=== PATIENT | female | born 1950 | race Caucasian/White ===

== ENCOUNTER 2023-09-24 09:43 | Outpatient (RCR) | payer MEDICARE, BC, SELFPAY | END 2023-09-24 10:45 | disposition home or self-care (01) | PROVIDERS: PCP Orthopaedic Surgery; Visit Provider Orthopaedic Surgery | DX: M16.12 Unilateral primary osteoarthritis, left hip (principal); Z96.642 Presence of left artificial hip joint; M25.552 Pain in left hip; Z74.09 Other reduced mobility; R26.9 Unspecified abnormalities of gait and mobility; R29.898 Other symptoms and signs involving the musculoskeletal system; Z51.89 Encounter for other specified aftercare | CPT/HCPCS: 97161; 97535 ==

== ENCOUNTER 2023-10-01 06:02 | Day surgery (SDC) | payer MEDICARE, BC, SELFPAY ==
[2023-10-01] VITALS (22 sets, daily range): BP systolic 107–145; BP diastolic 42–119; PULSE 65–94; RESP 14–18; TEMP 35.9–37; O2SAT 89–99; BMI 28.6
[2023-10-01] MEDS: ACETAMINOPHEN 500 MG TABLET 1000 MG PO ×3 (06:20→22:07)
[2023-10-01] MEDS: OXYCODONE (CR) 10 MG TAB.ER.12H PO (06:20)
[2023-10-01] MEDS: SODIUM CHLORIDE 0.9 % (FLUSH) 10 ML SYRINGE IVF (06:25)
[2023-10-01] MEDS: LACTATED RINGERS 1000 ML 1,000 ML 100 ML IV ×2 (06:25→08:52)
[2023-10-01] MEDS: MIDAZOLAM HCL 1 MG/ML inj IVP (07:05)
[2023-10-01] MEDS: fentaNYL 100 MCG/2 ML inj IVP (07:05)
--- NOTE | 2023-10-01 07:15 | XR_ITS ---
Patient: CHRIS KRISHNAMURTHY Facility:?[facility] Patient ID:?[id number] Site Patient ID:?[id number]. Site :?[id number] Study:?XRay-Hip Left TOTAL HIP, AA-10/01/2023 9:09:10 AM Ordering Physician:MAN Final Report: Indication: Hip replacement surgery Technique: AP hip fluoroscopic images. Fluoroscopy time 74.8 seconds. Findings/Impression: Hardware from a left total hip arthroplasty is in satisfactory position. Dictated by Jeffry Elkins MD @ 10/01/2023 12:38:48 PM Signed by:?Jeffry Elkins MD @10/01/2023 12:38:48 PM (Electronic Signature)
--- NOTE | 2023-10-01 07:19 | SUR.PREOP ---
TIME?OUT:?07 PT/jamshid reza RN/antonio ott MDA?VERIFICATION?OF?SURGICAL?SITE,?PROCEDURE,?AND?CONSENT OBTAINED?PRIOR?TO?INVASIVE?PROCEDURE.
[2023-10-01] MEDS: TRANEXAMIC ACID 100 MG/ML INJ 1000 MG IV (07:39)
[2023-10-01] MEDS: CEFAZOLIN 2 GM INJ IVP (07:39)
--- NOTE | 2023-10-01 07:50 | P.NB_ITS ---
Nerve Block Nerve Block Time Seen by Provider: 07:08 Date Seen: 10/01/23 Type of block requested by surgeon for post-operative analgesia: LYNDSAY/LFCN Side: left Time out performed: Yes Verification of patient name: Yes Verification of date of : Yes Site marking: site marked Name of person performing procedure: Clark Continuous monitoring Was continuous monitoring of O2 sat, B/P, printing equipment mechanic, recorded every 15 minutes?: Yes Procedure Checklist: sterile prep, needles and gloves Ultrasound guided. Images saved: Yes Medications given in 5ml increments after negative aspiration: Ropivicaine %: 0.5 mL: 30 Needle gauge: 20 Decadron (mg): 10 Precedex (mcg): 25 Patient tolerated procedure well: Yes Additional comments: Needle noted below psoas tendon needle noted adjacent to LFCN Block Charges Block Charge (with Pro Fee): Other Periph Nerve Block Use of Ultrasound Machine for Block: Yes- US Guidance/pain block
--- NOTE | 2023-10-01 07:50 | W.ANESCHARGE ---
Anesthesia Charges Start Date/Time Anesthesia Start Date: 10/01/23 Anesthesia Start Time: 07:15 Stop Date/Time Anesthesia Stop Date: 10/01/23 Anesthesia Stop Time: 09:54 Summary Extremes of Age - Over 70 or under 1: MDA
--- NOTE | 2023-10-01 08:55 | XR_ITS ---
Patient: CHRIS KRISHNAMURTHY Facility:?[facility] Patient ID:?[id number] Site Patient ID:?[id number]. Site :?[id number] Study:?XRay-Hip POST OP-10/01/2023 10:32:20 AM Ordering Physician:MAN Final Report: Indication: POST OP LEFT HIP Technique: AP hip centered pelvis and lateral view left hip Findings/Impression: Hardware from a left total hip arthroplasty is in satisfactory position. Bone alignment is normal. No sign of acute fracture. Postop changes are within normal limits. Dictated by Jeffry Elkins MD @ 10/01/2023 12:39:42 PM Signed by:?Jeffry Elkins MD @10/01/2023 12:39:42 PM (Electronic Signature)
--- NOTE | 2023-10-01 08:56 | P.ORPRC_ITS ---
Procedure Note Date of procedure: 10/01/23 Procedure: PREOPERATIVE DIAGNOSIS: Left hip osteoarthritis POSTOPERATIVE DIAGNOSIS: Left hip osteoarthritis NAME OF OPERATION: Left total hip arthroplasty SURGEON: Paco Abarca MD TECHNICAL SUPERVISOR: Magno Poon PA-C, TORY Rossi IMPLANTS: 1. [employer] [place] # 48 sector ingrowth cup 2. 32 x 48 neutral polyethylene 3. Actis #4 standard collared ingrowth stem 4. 32 +1 ceramic femoral head ANESTHESIA: General ESTIMATED BLOOD LOSS: 350 cc COMPLICATIONS: None SPECIMENS: None DRAINS: None PREOPERATIVE ANTIBIOTICS: Ancef 2 grams INDICATIONS: The patient is a 73-year-old with a longstanding history of severe, unrelenting left hip pain secondary to end-stage left hip osteoarthritis. Despite appropriate nonoperative management, including activity modification, use of an assist device, anti-inflammatories, [id number] pain medication, physical therapy and injections, they continue to have pain and disability. Operative intervention was offered. The risks, benefits and expected outcomes were discussed in detail. These included but were not limited to: Infection, bleeding, injury to blood vessel or nerve, venous thromboembolism. All questions were answered to their satisfaction. Use of an agency sales management assistant was necessary throughout the case for patient positioning and safety, soft tissue retraction and closure. PROCEDURE: The patient was placed supine on the [place] table. General anesthesia was administered. The agency sales management assistant made sure the patient was properly positioned. The left hip was prepped and draped in the usual sterile fashion. The image intensifier was brought in for a perfect AP pelvis and a perfect double tear drop AP view of each hip which were used for intraoperative templating with our fluoroscopic guide. An oblique incision was made 3 cm distal and 3 cm lateral to the anterior superior iliac spine. The agency sales management assistant retracted the soft tissues to protect them. Subcutaneous dissection was taken with electrocautery to the superficial fascia. The fascia was divided in line with the incision. Blunt dissection was carried medially to the tensor fascia to and sartorius interval. Deep dissection was carried with electrocautery. The circumflex vessels were cauterized and divided. The capsule was exposed and then divided in a T- fashion, tagged with #1 Ethibond sutures. Retractors were placed in the joint, held by the agency sales management assistant. The corkscrew was placed in the femoral head. The neck cut was made in the subcapital region. We made a second neck cut more distal. The napkin ring of bone was removed. The femoral head was removed intact. Acetabular retractors were placed, held by the agency sales management assistant. The labrum was sharply debrided. The capsule was released. The 43 mm reamer was used to the true medial wall. We then enlarged in 2 mm increments using the image in tensifier for our reamer placement. We impacted the cup which had excellent purchase. We placed the polyethylene. Attention was then turned to the proximal femur. The limb was placed in 140 degrees of external rotation, maximum extension and adduction. A significant amount of time was spent releasing the capsule to allow us to deliver the femur into the wound and complete the femoral side safely. Retractors were held by the agency sales management assistant throughout the femoral preparation. The stocking and box shop supervisor and canal finder were used. Broaches were used to a stable size. The calcar reamer was used. Trial components were placed. The hip was reduced and was found to be stable with appropriate soft tissue tension. Length and offset had been nicely restored using the image intensifier and our fluoroscopic guide. Trial components were removed. The stem was impacted. We placed the femoral head. Again, the hip was reduced and was found to be stable with appropriate soft tissue tension. Length and offset had been nicely restored. The agency sales management assistant did a three minute dilute Betadine solution soak. The agency sales management assistant irrigated the wound with 3 liters of normal saline via pulse lavage. The agency sales management assistant repaired the anterior capsule with a #1 Vicryl and our previously placed Ethibond sutures. The agency sales management assistant closed the fascia over the tensor fascia to with a #1 PDO Stratafix, subcutaneous tissues with 2-0 Vicryl, skin with a running 3-0 Stratafix and glue. A dry dressing was applied by the agency sales management assistant. Sponge and needle counts were correct x 2. The patient tolerated the procedure well; there were no apparent complications. They were awakened and extubated in the operating room, sent to the Post-Anesthesia Care Unit in satisfactory condition. PLAN: 1. The patient will be mobilized with physical therapy, weight-bearing as tolerates 2. Xarelto x 5 days then aspirin x 30 days will be used for DVT prophylaxis 3. The patient will be discharged once medically appropriate
--- NOTE | 2023-10-01 09:56 | P.ANES_ITS ---
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
[2023-10-01] MEDS: CEFAZOLIN 2 GM in 0.9 % SODIUM CHLORIDE Mini-bag 100 ML IVPB ×2 (14:06→21:13)
--- NOTE | 2023-10-01 17:09 | P.IMCN_ITS ---
Date of Consult Patient: Other Consult date: 10/01/23 Requesting Physician: Orthopedics Primary Care Provider: Diane Jackson MD Consult Narrative Reason for consult: Anxiety Narrative: Ivonne Dupree is a 73 year old female who is on Paxil for anxiety and underwent elective left total hip arthroplasty today by Dr. Abarca for severe osteoarthritis. She is doing well postoperatively and has no pain at this time. She is eating a little bit of dinner and feels good. Review of Systems Status of ROS: Reports: 6 or more systems reviewed and unremarkable except as noted in History and below [facility] Medical History (Updated 10/01/23 @ 17:40 by Jena Grady MD) Asymptomatic varicose veins ?I83.90 - Asymptomatic varicose veins of unspecified lower extremity (ICD-10) Mucous polyp of cervix ?N84.1 - Polyp of cervix uteri (ICD-10) B12 deficiency ?E53.8 - Deficiency of other specified B group vitamins (ICD-10) Insomnia ?G47.00 - Insomnia, unspecified (ICD-10) Sciatica ?M54.30 - Sciatica, unspecified side (ICD-10) Anxiety ?F41.9 - Anxiety disorder, unspecified (ICD-10) Surgical History (Updated 10/01/23 @ 17:39 by Jena Grady MD) S/P anal fissurectomy (~1974) ?Z98.890 - Other specified postprocedural states (ICD-10) ?Z87.19 - Personal history of other diseases of the digestive system (ICD-10) H/O wisdom tooth extraction ?K08.409 - Partial loss of teeth, unspecified cause, unspecified class (ICD- 10) Hx of colonoscopy ?Z98.890 - Other specified postprocedural states (ICD-10) S/P total left hip arthroplasty (10/01/23) ?Z96.642 - Presence of left artificial hip joint (ICD-10) History of open reduction and internal fixation (ORIF) procedure (~2020) ?Z98.890 - Other specified postprocedural states (ICD-10) History of cataract extraction ?Z98.49 - Cataract extraction status, unspecified eye (ICD-10) History of total right knee replacement (~2017) ?Z96.651 - Presence of right artificial knee joint (ICD-10) H/O dilation and curettage (1977) ?Z98.890 - Other specified postprocedural states (ICD-10) Status post total left knee replacement (02/06/16) ?Z96.652 - Presence of left artificial knee joint (ICD-10) Family History (Updated 10/01/23 @ 17:01 by Jena Grady MD) Father Skin cancer Sister Diabetes COPD (chronic obstructive pulmonary disease) High blood pressure Son FH: testicular cancer, Onset Age: 40 Family/Other Type I diabetes mellitus Social History (Updated 10/01/23 @ 17:18 by Jena Grady MD) Narrative: , lives independently with , never smoker, 1 glass red wine nightly, denies recreational drugs. Smoking Status: Never smoker Do you use any of these nicotine containing products: None Second hand tobacco smoke exposure: No How often do you have a drink containing alcohol: 2-3 times a week How often do you have six or more drinks on one occasion: Never AUDIT-C Alcohol total score: 3 Non-prescribed substance use: denies use Caffeine: Yes Meds Home Medications and Allergies Home Medications Medication Instructions Recorded Confirmed Type calcium 600 mg-D3 20 mcg-magnesium 2 tab PO DAILY 05/20/23 10/01/23 History 40 oc-xitpxf-dpij-zinc chew tablet carboxymethylcellulose sodium 0.5 1 drp ophthalmic (eye) BID 05/20/23 10/01/23 History % eye drops (Refresh Tears) paroxetine HCl 30 mg tablet 30 mg PO DAILY 05/20/23 10/01/23 History fexofenadine-pseudoephedrine ER 1 tab PO DAILY PRN 09/30/23 10/01/23 History 180 mg-240 mg tablet,ext.release 24 hr (Stephanie-D 24 Hour) fluticasone propionate 50 2 spray intranasal DAILY 09/30/23 10/01/23 History mcg/actuation nasal spray,suspension Allergies Allergy/AdvReac Type Severity Reaction Status Date / Time celecoxib [From Celebrex] Allergy Nausea Verified 10/01/23 06:32 lisinopril Allergy Cough Verified 10/01/23 06:32 propoxyphene [From Darvon] AdvReac tachycardia Verified 10/01/23 06:32 tramadol AdvReac tachycardia, Verified 03/05/24 06:32 dizziness Exam Narrative: Exam Narrative: General: No acute distress. Awake alert oriented x3. HEENT: Normocephalic atraumatic, pupils equally round and reactive to light and accommodation. Oropharynx clear. Mucous membranes are moist. No cervical lymphadenopathy, thyromegaly or carotid bruits. No JVD. Cardiovascular: Regular rate and rhythm. No murmurs, gallops, or rubs. Chest: No increased work of breathing. Clear to auscultation bilaterally. No crackles or wheezes. Abdomen: Bowel sounds present. Soft, nondistended, nontender. No hepatosplenomegaly or masses. Extremities: Left hip bandage is clean, dry, and intact. No edema, no cyanosis or clubbing. Skin: No jaundice, no pallor. Const: Vital Signs, click to edit/add: Vital Signs - 24 hr 10/01/23 06:32 10/01/23 07:04 10/01/23 09:50 Temperature 97.8 F 97.4 F L Pulse Rate 69 65 77 Pulse Rate [Bilate ral Pulse Oximeter ] Respiratory Rate 16 16 14 Blood Pressure 142/77 H 145/77 H 140/72 H Pulse Oximetry 98 97 89 Oxygen Delivery Me thod Room Air Nasal Cannula OxyMask Oxygen Flow Rate 2 10 Fraction of Inspir ed Oxygen 100 10/01/23 09:55 10/01/23 10:00 10/01/23 10:05 Temperature Pulse Rate 77 79 83 Pulse Rate [Bilate ral Pulse Oximeter ] Respiratory Rate 14 16 16 Blood Pressure 127/56 L 123/87 138/94 H Pulse Oximetry 93 99 97 Oxygen Delivery Me thod OxyMask OxyMask OxyMask Oxygen Flow Rate 10 10 6 Fraction of Inspir ed Oxygen 100 100 100 10/01/23 10:10 10/01/23 10:15 10/01/23 10:20 Temperature Pulse Rate 78 72 76 Pulse Rate [Bilate ral Pulse Oximeter ] Respiratory Rate 16 16 16 Blood Pressure 135/119 H 142/72 H 128/65 Pulse Oximetry 96 97 95 Oxygen Delivery Me thod Room Air Room Air Room Air Oxygen Flow Rate Fraction of Inspir ed Oxygen 10/01/23 10:25 10/01/23 10:35 10/01/23 10:45 Temperature 98.2 F 96.6 F L Pulse Rate 78 79 80 Pulse Rate [Bilate ral Pulse Oximeter ] Respiratory Rate 16 16 16 Blood Pressure 143/63 H 128/65 130/76 Pulse Oximetry 94 92 92 Oxygen Delivery Me thod Room Air Room Air Room Air Oxygen Flow Rate Fraction of Inspir ed Oxygen 10/01/23 11:00 10/01/23 11:15 10/01/23 11:30 Temperature 97.6 F Pulse Rate 85 83 79 Pulse Rate [Bilate ral Pulse Oximeter ] Respiratory Rate 16 16 16 Blood Pressure 129/66 129/70 120/68 Pulse Oximetry 93 96 95 Oxygen Delivery Me thod Room Air Room Air Room Air Oxygen Flow Rate Fraction of Inspir ed Oxygen 10/01/23 12:00 10/01/23 12:30 10/01/23 13:00 Temperature 97.7 F Pulse Rate 82 94 87 Pulse Rate [Bilate ral Pulse Oximeter ] Respiratory Rate 16 16 16 Blood Pressure 117/64 116/61 107/66 Pulse Oximetry 94 94 95 Oxygen Delivery Me thod Room Air Room Air Room Air Oxygen Flow Rate Fraction of Inspir ed Oxygen 10/01/23 14:00 10/01/23 15:00 10/01/23 16:00 Temperature 97.5 F L 97.6 F Pulse Rate 83 91 Pulse Rate [Bilate ral Pulse Oximeter ] 91 Respiratory Rate 18 16 16 Blood Pressure 136/67 125/63 Pulse Oximetry 96 93 Oxygen Delivery Me thod Room Air Room Air Oxygen Flow Rate Fraction of Inspir ed Oxygen Assessment and Plan Assessment and plan (1) S/P total left hip arthroplasty: Problem comment: - 10/01/2023, Dr. Abarca - routine postop cares - routine VTE prophylaxis with Giorgio's, SCDs, Xarelto for 5 days then transitioning to low-dose aspirin twice a day. Status: Acute (2) Osteoarthritis of left hip: Status: Chronic (3) Anxiety: Problem comment: Continue paroxetine Status: Chronic
[2023-10-01] MEDS: OXYCODONE 5 MG TABLET PO (21:13)
[2023-10-01] MEDS: CARBOXYMETHYLCELLULOSE (REFRESH PLUS) TEARS 1 DROP EYE-BOTH (21:14)
--- NOTE | 2023-10-01 22:48 | PC.NURSE ---
End of Shift: Patient pleasant and cooperative. Afebrile. Dressing to left hip C/D/I. CMS intact. Rating pain 2-4/10 and PRN Oxycodone given x1. Up to chair and bathroom with 1 assist, walker and gait belt. Tolerating regular diet with no nausea.
[2023-10-02 00:50] VITALS: BP 102/57; PULSE 78; RESP 16; TEMP 36.7; O2SAT 92
[2023-10-02] MEDS: ACETAMINOPHEN 500 MG TABLET 1000 MG PO ×2 (03:41→09:30)
[2023-10-02 03:50] VITALS: BP 107/60; PULSE 94; RESP 16; TEMP 37; O2SAT 90
[2023-10-02 06:36] LABS: Basophils Absolute Auto 0.01 K/uL (0.00-0.30); Basophils Percent Auto 0.1 % (0.0-3.0); Hematocrit 31.5 % (33.0-51.0); Immature Granulocytes Abs Auto 0.01 K/uL (0.00-0.30); Immature Granulocytes Pct Auto 0.1 %; Lymphocytes Percent Auto 8.8 % (20-44); Mean Corpuscular HGB Conc 32 gm/dL (32-36); Mean Corpuscular Hemoglobin 33 pg (26-34); Mean Corpuscular Volume 105 fL (80-100); Monocytes Percent Auto 10.7 % (0.0-11.0); Neutrophils Percent Auto 80.3 % (42.0-72.0); Platelet Count* 187 K/uL (140-440); RDW Coefficient of Variation % 13.2 % (11.5-15.5); Red Blood Count 2.99 m/uL (4.00-5.20); White Blood Count* 9.92 K/uL (4.50-11.00)
--- NOTE | 2023-10-02 06:36 | PC.NURSE ---
Pt alert and oriented x3.?Afebrile. Pt reports 3/10 pain in left hip, managed with ice pack and scheduled?medications. Pt denies SOB, chest pain, and N/V. Pt?s left hip dressing is CDI. Pt is up SBA to bathroom, voiding, and tolerating a regular diet. Pt slept throughout most of night.??
[2023-10-02 07:13] LABS: Potassium* 4.3 mmol/L (3.6-5.1); Sodium* 138 mmol/L (135-149)
[2023-10-02 07:16] LABS: Blood Urea Nitrogen* 27 mg/dL (7-30); Creatinine* 0.7 mg/dL (0.5-1.5); Est. Creatinine Clearance* 41.97; Estimated Glomerular Filt Rate 90 ml/min
[2023-10-02 07:26] LABS: Slide Review Reflex No
[2023-10-02 08:13] VITALS: BP 121/72; PULSE 86; RESP 16; TEMP 37.3; O2SAT 94
--- NOTE | 2023-10-02 08:29 | PM.ORPN ---
Subjective Subjective Time Seen by Provider: 07:40 Date Seen: 10/02/23 Principal diagnosis: Day 1 s/p left total hip arthroplasty Interval history: Ivonne is doing well and resting comfortably in bed. Reports slept very well. Strong appetite, just finished breakfast. Ivonne reports no left hip pain, but c/o left hip stiffness. Pain is well managed with Tylenol and icing this morning. Denies: fever, chills, chest pain, SOB, numbness/tingling distally. Denies bowel movement postoperatively, but admits to flatulence. Last BM Saturday. Patient is eager to be discharged late morning/early afternoon today. Ortho Exam Narrative Exam Narrative: Incision/Dressing: Dressing appears clean and dry. No drainage present. Mepilex intact. Left hip appears moderately swollen but supple with no obvious erythema, fluctuance or excessive warmth. Posterior left hip ecchymosis present. Warmth around the wound is appropriate. Ice is being utilized as needed. CMS: Intact distally with 2+ Dorsalis pedis and Posterior Tibial pulses. 5/5 motor strength dorsal and plantar flexion. Confirmed sensation distally. Intact straight leg raise. Calf: Bilateral calves are supple, with no swelling, pain, tenderness, erythema, discoloration or coolness to the touch. Constitutional: Patient is alert and oriented x3. Patient is in no acute distress and converses without labored breathing. Patient is able to make decisions and demonstrates good insight. Patient is pleasant and cooperative. Affect is full range and appropriate for the circumstances. Const Vital Signs, click to edit/add: Vital Signs - 24 hr 10/01/23 09:50 10/01/23 09:55 10/01/23 10:00 Temperature 97.4 F L Pulse Rate 77 77 79 Pulse Rate [Bilateral Pulse Oximeter] Pulse Rate [Right Pulse Oximeter] Respiratory Rate 14 14 16 Blood Pressure 140/72 H 127/56 L 123/87 Blood Pressure [Left Arm] Pulse Oximetry 89 93 99 Oxygen Delivery Method OxyMask OxyMask OxyMask Oxygen Flow Rate 10 10 10 Fraction of Inspired Oxygen 100 100 100 10/01/23 10:05 10/01/23 10:10 10/01/23 10:15 Temperature Pulse Rate 83 78 72 Pulse Rate [Bilateral Pulse Oximeter] Pulse Rate [Right Pulse Oximeter] Respiratory Rate 16 16 16 Blood Pressure 138/94 H 135/119 H 142/72 H Blood Pressure [Left Arm] Pulse Oximetry 97 96 97 Oxygen Delivery Method OxyMask Room Air Room Air Oxygen Flow Rate 6 Fraction of Inspired Oxygen 100 10/01/23 10:20 10/01/23 10:25 10/01/23 10:35 Temperature 98.2 F 96.6 F L Pulse Rate 76 78 79 Pulse Rate [Bilateral Pulse Oximeter] Pulse Rate [Right Pulse Oximeter] Respiratory Rate 16 16 16 Blood Pressure 128/65 143/63 H 128/65 Blood Pressure [Left Arm] Pulse Oximetry 95 94 92 Oxygen Delivery Method Room Air Room Air Room Air Oxygen Flow Rate Fraction of Inspired Oxygen 10/01/23 10:45 10/01/23 11:00 10/01/23 11:15 Temperature 97.6 F Pulse Rate 80 85 83 Pulse Rate [Bilateral Pulse Oximeter] Pulse Rate [Right Pulse Oximeter] Respiratory Rate 16 16 16 Blood Pressure 130/76 129/66 129/70 Blood Pressure [Left Arm] Pulse Oximetry 92 93 96 Oxygen Delivery Method Room Air Room Air Room Air Oxygen Flow Rate Fraction of Inspired Oxygen 10/01/23 11:30 10/01/23 12:00 10/01/23 12:30 Temperature 97.7 F Pulse Rate 79 82 94 Pulse Rate [Bilateral Pulse Oximeter] Pulse Rate [Right Pulse Oximeter] Respiratory Rate 16 16 16 Blood Pressure 120/68 117/64 116/61 Blood Pressure [Left Arm] Pulse Oximetry 95 94 94 Oxygen Delivery Method Room Air Room Air Room Air Oxygen Flow Rate Fraction of Inspired Oxygen 10/01/23 13:00 10/01/23 14:00 10/01/23 15:00 Temperature 97.5 F L Pulse Rate 87 83 Pulse Rate [Bilateral Pulse Oximeter] 91 Pulse Rate [Right Pulse Oximeter] Respiratory Rate 16 18 16 Blood Pressure 107/66 136/67 Blood Pressure [Left Arm] Pulse Oximetry 95 96 Oxygen Delivery Method Room Air Room Air Oxygen Flow Rate Fraction of Inspired Oxygen 10/01/23 16:00 10/01/23 19:00 10/02/23 00:50 Temperature 97.6 F 98.6 F Pulse Rate 91 Pulse Rate [Bilateral Pulse Oximeter] Pulse Rate [Right Pulse Oximeter] 89 Respiratory Rate 16 16 16 Blood Pressure 125/63 Blood Pressure [Left Arm] 114/42 L Pulse Oximetry 93 94 Oxygen Delivery Method Room Air Room Air Oxygen Flow Rate Fraction of Inspired Oxygen 10/02/23 00:50 10/02/23 03:50 10/02/23 08:13 Temperature 98.0 F 98.6 F 99.1 F Pulse Rate Pulse Rate [Bilateral Pulse Oximeter] Pulse Rate [Right Pulse Oximeter] 78 94 86 Respiratory Rate 16 16 16 Blood Pressure Blood Pressure [Left Arm] 102/57 L 107/60 121/72 Pulse Oximetry 92 90 94 Oxygen Delivery Method Room Air Room Air Room Air Oxygen Flow Rate Fraction of Inspired Oxygen Assessment and Plan Assessment and plan (1) S/P total left hip arthroplasty: Problem details: DOS: 10/01/2023, Dr. Abarca Status: Acute Assessment and Plan: - Complete 23 hour perioperative antibiotics. - PT/OT consults for education and assistance. - Weight bear as tolerated with a walker for assistance. - Prescribed analgesics as needed. Patient is content with current narcotic medications. Minimize narcotic pain medication use; wean off and discontinue as soon as possible. - DVT prophylaxis: Xarelto x 5 days followed by aspirin 81 mg BID x 30 days. Also bilateral knee high Giorgio stockings (x 1 month), frequent ambulation and ankle pumps when sedentary. - Social consult for discharge planning. - Anticipate patient will be discharged to home this afternoon if the patient remains medically stable, pain is controlled and is safe with ambulation. - Return to clinic in 1 week for a wound check. Mepilex dressing will be removed at this appointment. Remove sooner if dressing becomes saturated. - Return to clinic in [address] Abarca. - Phone Orthopedics with any questions or concerns. [phone]
[2023-10-02] MEDS: RIVAROXABAN 10 MG TABLET PO (09:30)
[2023-10-02] MEDS: PARoxetine 20 MG TABLET 30 MG PO (09:30)
[2023-10-02] MEDS: CARBOXYMETHYLCELLULOSE (REFRESH PLUS) TEARS 1 DROP EYE-BOTH (09:30)
[2023-10-02] MEDS: SENNOSIDES 1 TAB TABLET 2 TAB PO (09:30)
== END 2023-10-02 11:10 | disposition home or self-care (01) ==
LOC: OR 06:04 → MEDSURG 06:08
PROVIDERS: PCP Student in an Organized Health Care Education/Training Program; Visit Provider Orthopaedic Surgery
PROC: (CPT 27130; principal; 2023-10-01 07:15)
DX: M16.12 Unilateral primary osteoarthritis, left hip (principal); G89.18 Other acute postprocedural pain; F41.9 Anxiety disorder, unspecified
CPT/HCPCS: 27130; 01214; 36415; 64450; 73501; 76942; 82565; 84132; 84295; 84520; 85025; 86850; 86900; 86901; 97110; 97161; 97165; 97530; 97535; 99100; A9270; C1776; J0690; J1100; J1170; J1885; J2250; J2405; J2704; J2710; J2795; J3010; J7120

== ENCOUNTER 2024-11-24 10:19 | Outpatient (CLI) | payer MEDICARE, BC, SELFPAY | END 2024-11-24 10:20 | disposition home or self-care (01) | LOC: INJ CL 10:20 | PROVIDERS: PCP Nurse Practitioner Family; Visit Provider Family Medicine | DX: M54.16 Radiculopathy, lumbar region (principal) | CPT/HCPCS: 64483; J1100; Q9966 ==

== ENCOUNTER 2025-06-28 10:26 | Outpatient (CLI) | payer MEDICARE, BC, SELFPAY ==
--- NOTE | 2025-06-28 11:00 | CRLHL7_ITS ---
For Patients: As a result of the Century Cures Act, medical imaging exams and procedure reports are released immediately into your electronic medical record. You may view this report before your referring provider. If you have questions, please contact your health care provider. 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 Mild mucosal thickening right frontal sinus inferiorly. Ethmoid sinuses: Clear. Maxillary sinuses: Mild mucosal thickening inferior left maxillary sinus. Right maxillary sinus clear. The maxillary sinus drainage pathways are patent on both sides. Sphenoid sinuses: Mild mucosal thickening anterior right sphenoid sinus. Clear left sphenoid sinus. Patent sphenoethmoidal recesses. Nasal Cavity: Leftward deviation of the nasal septum. Right-sided nasal septal spur. Moose bullosa right middle turbinate measures 1.1 cm. No polyps. Degenerative changes at the temporomandibular joints. The visualized portions of the orbits, intracranial contents and upper soft tissue neck are grossly negative. Impression: 1. Mild sinus disease. Clear sinus drainage pathways. 2. Curvature of the nasal septum with moose bullosa in the right middle turbinate. Please note that all CT scans at this facility use dose modulation, iterative reconstruction, and/or weight-based dosing when appropriate to reduce radiation dose to as low as reasonably achievable. Dictated by Jeffry Elkins MD @ 06/28/2025 10:56:44 AM (Electronically Signed)
== END 2025-06-28 10:27 | disposition home or self-care (01) ==
PROVIDERS: PCP Family Medicine; Visit Provider Family Medicine
DX: J32.9 Chronic sinusitis, unspecified (principal); J34.2 Deviated nasal septum; J34.89 Other specified disorders of nose and nasal sinuses
CPT/HCPCS: 70486